=== PATIENT | male | born 1955 | race Caucasian/White ===

== ENCOUNTER 2017-03-27 08:30 | Emergency (ER) | payer OTHER ==
--- NOTE | 2017-04-01 17:50 | ER ---
ADMIT: 03/27/2017 RM/LOC: ER [facility] MR#: [id number] [facility] [address] [place] [id number] NOE MACDONALD [address] [place] [address] Emergency Room Report SEX: M AGE: 61 : 1955 DATE: 03/27/2017 ADDENDUM: This is a 61-year-old white male coming in with right flank pain that he thought was a kidney stone. He had an extraction of a kidney stone some years ago, but it was an open extraction. He has hyperlipidemia along with his history of kidney stones. CT scan showed bilateral staghorn calculi with atrophic kidneys. He had a creatinine of 2.9. 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 ALLERGIES: PENICILLIN. MEDICATIONS: List shows to be: 1. Verapamil for hypertension. 2. He has also been on Bactrim. 3. Metoprolol. 4. Lisinopril. 5. Lovastatin. At this time, we are discharging him out. We have made an appointment to see [facility] on Sunday at 10:[address] Sexton. Instructions given. Copy of the CT scan per CD was given. Dr. Gaviria will fax his records as well as what we have here which he really is not anything as he has not been admitted for some time here. He is advised of this, instructed on how to get there. Reinforced that he does need to make this to get some more consult as to his overall options. He also has a chronic bilateral hernia, although I think it is mainly on the right, but there is no acute problem with that at this time. He and his son were spoken with, they understand. CONDITION ON DISCHARGE: Fair. Noe Saleh MD/ darcy JOB #: [id number] CC: Noe Saleh MD, Attending Physician Xavi Gaviria MD, Family Physician
== END 2017-03-27 12:15 | disposition home or self-care (01) ==
LOC: ER 08:30
DX: N39.0 Urinary tract infection, site not specified (principal); N20.0 Calculus of kidney; N28.1 Cyst of kidney, acquired; E78.5 Hyperlipidemia, unspecified; I10 Essential (primary) hypertension; K40.20 Bilateral inguinal hernia, without obstruction or gangrene, not specified as recurrent; Z88.0 Allergy status to penicillin; Z79.899 Other long term (current) drug therapy

== ENCOUNTER → 2017-04-09 | Outpatient (CLI) | payer OTHER | END | disposition home or self-care (01) | LOC: RAD.S 09:54 | DX: N13.30 Unspecified hydronephrosis (principal); N20.0 Calculus of kidney; N39.0 Urinary tract infection, site not specified; N28.89 Other specified disorders of kidney and ureter ==